=== PATIENT | female | born 1950 | race Native Hawaiian/Other Pacific Islander ===

== ENCOUNTER 2022-03-25 13:31 | Outpatient (CLI) | payer OTHER | END 2022-03-25 19:25 | disposition home or self-care (01) | LOC: MAMMO 13:31 | PROVIDERS: ATTEND Internal Medicine | DX: N95.1 Menopausal and female climacteric states (principal); N95.8 Other specified menopausal and perimenopausal disorders; Z12.31 Encounter for screening mammogram for malignant neoplasm of breast ==

== ENCOUNTER 2022-10-01 13:06 | Outpatient (CLI) | payer OTHER ==
[~2022-10-01] VITALS: Ht 165.1 cm; Wt 68.0 kg
[2022-10-01 13:30] VITALS: BP 128/57; TEMP 97.7
== END 2022-10-01 20:26 | disposition home or self-care (01) ==
LOC: INF 13:06
PROVIDERS: ATTEND Internal Medicine
DX: M81.0 Age-related osteoporosis without current pathological fracture (principal)
CPT/HCPCS: 36415; 82310; 96372; J0897